=== PATIENT | female | born 1975 | race Caucasian/White ===

== ENCOUNTER 2017-03-01 10:21 | Inpatient (IN) | payer OTHER ==
[~2017-03-01] VITALS: Ht 161.3 cm; Wt 74.8 kg
[2017-03-01] MEDS ORDERED: LOPERAMIDE HCL 2 MG CAPSULE PO PRN ×2 (19:15)
[2017-03-01] MEDS ORDERED: MAG HYDROX/AL HYDROX/SIMETH 30 ML LIQUID UDC PO PRN (19:15)
[2017-03-01] MEDS ORDERED: LORAZEPAM 2 MG/1 ML VIAL IM PRN (19:15)
[2017-03-01] MEDS ORDERED: MIRALAX 17 GM POWD.PACK PO PRN (19:15)
[2017-03-01] MEDS ORDERED: THIAMINE HCL 200 MG/2 ML VIAL IM ONE (19:15)
[2017-03-01] MEDS ORDERED: ONDANSETRON 4 MG/2 ML VIAL IM PRN (19:15)
[2017-03-01] MEDS ORDERED: CLONIDINE HCL 0.1 MG TABLET PO PRN (19:15)
[2017-03-01] MEDS ORDERED: ACETAMINOPHEN 325 MG TABLET PO PRN (19:15)
[2017-03-01] MEDS ORDERED: MAGNESIUM HYDROXIDE 30 ML LIQUID UDC PO PRN (19:15)
[2017-03-01] MEDS ORDERED: IBUPROFEN 400 MG TABLET PO PRN (19:15)
[2017-03-01] MEDS ORDERED: LORAZEPAM 1 MG TABLET PO PRN ×2 (19:15)
[2017-03-01] MEDS ORDERED: ONDANSETRON ODT 4 MG TAB.RAPDIS SL PRN (19:15)
--- NOTE | 2017-03-01 19:45 | NUR ---
PRE ADMISSION NOTE Pt is a 41 y/o female, seen at intake, AAOx4, no SOB with mild anxiety noted at this time. Discussed with patient the admission policies of the unit. Patient is coherent and able to respond to questions appropriately. Pt is ambulatory with steady gait. Vital signs taken and as follows: BP: 151/75, P: 82, R: 18, O2: 100%, T: 95.8, PA: 0. Pt verbalized understanding of instructions and teachings regarding disposal of narcotic and other controlled home medications, unit protocols such as taking of vital signs Q4H and handling and disposal of contraband. Will continue with admission upon pts arrival on the unit.
--- NOTE | 2017-03-01 19:54 | NUR ---
ADMISSION NOTE Pt is a 41 y/o female admitted on 03/01/17 for ETOH dependence, arrived on the unit at 1954. Pt has NKA, denies history of seizures. Pt was able to provide UDS. Upon admission CIWA 5, BP: 151/75, P: 82, R: 18, O2: 100%, T: 95.8, PA: 0. Weight 165, height 53.5. Pt reports she does not have a PCP, smokes 1-1.5 packs daily, denies being hospitalized within past 30 days. Pt is able to understand and respond to all questions pertaining to her hospitalization. Substance Abuse History is as follows: 1. Beer "6-18 packs" daily, last intake of 18 pack on 02/25/17, at this rate for 1 year. 2. Vodka 500 ml once or twice monthly, last intake of 500 ml on 02/12/17, at this rate for 2 years. 3. Marijuana "5-6 one hitters" daily, last intake of "5-6 one hitters" on 02/28/17, at this rate for 2 years. Pts longest sober period for 8 years between [id number]. Treatment history: Pt has only been to one outpatient service, [facility], for 3 months. First time in detox today. Pt reports her mother is an alcoholic. PMH: Anxiety, migraines, rib fracture (2005), and x 3. Pt denies any hx of seizures. Pt denies taking any medications at home. Upon assessment, pt is AAOx4, pt is not currently intoxicated (last intake of ETOH on 02/25/17), presents with mild anxiety, mild sweats and tremors. Respirations 18, even and unlabored. Denies SOB, chest pain, N/V/D. Bowel sounds active x 4, abdomen soft. PERRLA. Skin intact, no open wounds noted. Pt denies SI/HI. Educational information provided and left at bedside. Pt oriented to room and encouraged to notify staff with any concerns. Safety measures in place. Call light within reach, side rails up x 2 with pads, bed locked and in low position. Will continue to monitor.
[2017-03-01 20:00] VITALS: BP 151/75
[2017-03-01 20:21] LABS: *AMPHETAMINE, URINE NEGATIVE (NEGATIVE); *BARBITURATE, URINE NEGATIVE (NEGATIVE); *CANNABINOID, URINE POSITIVE (NEGATIVE); *COCCAINE, URINE NEGATIVE (NEGATIVE); *OPIATE, URINE NEGATIVE (NEGATIVE); *PHENCYCLIDINE SCREEN,URINE NEGATIVE (NEGATIVE)
[2017-03-01 20:22] LABS: *URINE HCG, QUAL NEGATIVE (NEGATIVE)
[2017-03-01 20:49] LABS: BASOPHILS # (AUTO) 0.1 K/uL (0.0-8.0); BASOPHILS % (AUTO) 0.9 % (0.0-2.0); EOSINOPHILS # (AUTO) 0.3 K/uL (0.0-0.7); EOSINOPHILS % (AUTO) 2.7 % (0.0-7.0); HEMATOCRIT 44.3 % (37-47); HEMOGLOBIN 14.7 G/DL (12.0-16.0); LYMPHOCYTES # (AUTO) 3.2 K/UL (0.8-4.8); LYMPHOCYTES % (AUTO) 27.2 % (20.5-51.5); MEAN CORPUSCULAR HEMOGLOBIN 32.5 UUG (27.0-31.0); MEAN CORPUSCULAR HGB CONC 33 g/dL (32.0-37.0); MEAN CORPUSCULAR VOLUME 98.2 FL (81.0-99.0); MONOCYTES # (AUTO) 0.6 K/UL (0.1-1.30); MONOCYTES % (AUTO) 5.5 % (0.0-11.0); NEUTROPHILS # (AUTO) 7.4 K/UL (1.8-8.9); NEUTROPHILS % (AUTO) 63.7 % (38.5-71.5); PLATELET COUNT (AUTO) 268 K/UL (150-450); RED BLOOD CELL COUNT(AUTO) 4.51 MIL/UL (4.2-5.4); WHITE BLOOD COUNT (AUTO) 11.6 K/UL (4.0-11.2)
[2017-03-01 20:58] LABS: ETHANOL < 3 MG/DL (0-0)
[2017-03-01] MEDS ORDERED: THIAMINE HCL 200 MG/2 ML VIAL ONE (21:00)
[2017-03-01] MEDS ORDERED: LORAZEPAM 1 MG TABLET ONE (21:01)
[2017-03-01 21:05] LABS: ALANINE AMINOTRANSFERASE 49 U/L (14-59); ALKALINE PHOSPHATASE 71 U/L (50-136); AMYLASE 62 U/L (25-115); ASPARTATE AMINOTRANSFERASE 34 U/L (15-37); BILIRUBIN,TOTAL 0.2 mg/dL (0.2-1.0); CARBON DIOXIDE 22 mmol/L (21-32); CHLORIDE 109 mmol/L (98-107); CREATININE 1.1 mg/dL (0.6-1.3); GLUCOSE 84 mg/dL (74-106); MAGNESIUM 2.1 mg/dL (1.8-2.4); POTASSIUM 3.9 mmol/L (3.5-5.1); UREA NITROGEN, BLOOD 13 mg/dL (7-18)
--- NOTE | 2017-03-01 21:11 | NUR ---
ATIVAN 2 MG X 1 AND VITAMIN B1 INJ X 1 ADMINISTRATION Pt presents with anxiety, tremors, and mild sweats. CIWA 5. Respirations 18, even and unlabored. Safety measures in place. Call light within reach. Will continue to monitor.
[2017-03-01 21:25] LABS: NEUTROPHILS % (MANUAL) 65 % (42-75)
[2017-03-01 21:26] LABS: EOSINOPHILS % (MANUAL) 1 % (0-8); LYMPHOCYTES % (MANUAL) 26 % (20-40); MONOCYTES % (MANUAL) 8 % (2-10)
[2017-03-01] MEDS ORDERED: LORAZEPAM 1 MG TABLET PO ONE (22:00)
--- NOTE | 2017-03-01 22:11 | NUR ---
ATIVAN 2 MG X 1 REASSESSMENT CIWA lowered from 5 to 2. Pt appears less anxious and tremors decreased. Safety measures in place. Call light within reach. Will continue to monitor.
[2017-03-01] MEDS ORDERED: CLONIDINE HCL 0.1 MG TABLET ONE (22:18)
[2017-03-01] MEDS ORDERED: diphenhydrAMINE 50 MG CAPSULE ONE (22:19)
[2017-03-01] MEDS: diphenhydrAMINE 50 MG CAPSULE PO PRN (22:29)
--- NOTE | 2017-03-01 22:29 | NUR ---
PRN CLONIDINE AND BENADRYL ADMINISTRATION BP 151/75, orders to administer Clonidine for BP > 140/90. Pt requests sleep aid d/t reported insomnia. Safety measures in place. Call light within reach. Will continue to monitor.
--- NOTE | 2017-03-01 23:29 | NUR ---
PRN CLONIDINE AND BENADRYL REASSESSMENT Pt is laying in bed with eyes closed. BP 100/66. Respirations 20, even and unlabored. Safety measures in place. Call light within reach. Will continue to monitor.
[2017-03-01] MEDS ORDERED: hydrALAZINE HCL 50 MG TABLET PO PRN (23:45)
[2017-03-02] VITALS: BP 100/66
--- NOTE | 2017-03-02 | NUR ---
CIWA DEFERRED Pt is laying in bed with eyes closed, to be assessed when pt is awake per orders. Respirations 20, even and unlabored. Safety measures in place. Call light within reach. Will continue to monitor.
[2017-03-02 04:00] VITALS: BP 112/58
--- NOTE | 2017-03-02 04:00 | NUR ---
CIWA DEFERRED Pt laying in bed with eyes closed, to be assessed when pt is awake per orders. Respirations 18, even and unlabored. Safety measures in place. Call light within reach. Will continue to monitor.
--- NOTE | 2017-03-02 07:33 | NUR ---
END OF SHIFT Pt is a 41 y/o female admitted on 03/01/17 for ETOH dependence. Pt was dependent on 6-18 cans of beer daily, occasional vodka intake, and daily MJ use. Last dose of ETOH was 02/25/14. Pt is full code, NKA, regular diet, and fall/seizure precautions. No reported seizure hx. Pt reports PMH of anxiety and migraines. No taper ordered at this time. Upon assessment, pt presented with anxiety, mild sweats, and mild tremors. Vitamin B1 injection, x1 Ativan 2 mg, PRN Clonidine and Benadryl administered effective in S/S of withdrawal AEB CIWA lowered from 5 to 2 during shift. Pt slept 7 hours. Intake 500 ml, voids x 1, stool x 0. Safety measures in place. Call light within reach. Pts needs have been met. Endorsed to day shift nurse.
--- NOTE | 2017-03-02 07:45 | NUR ---
START OF SHIFT Rcvd endorsement from ongoing nurse, client is in bed, she is a/o x 4, she presents with depressed mood, flat affect, and flushed face. She reports abdominal cramps, restless legs, decreased appetite and anxiety. Client denies any N/V/D. She denies any SI/HI. Encouraged client to attend group therapy for skills to maintain sober. Encouraged client to increase PO fluid as tolerated to facilitate detox. Client is a 60 y/o female, admitted to [facility] for withdrawal from alcohol. Ativan 1mg PO q2h PRN CIWA 8-14, Ativan 2 mg PO q2h PRN CIWA 15+ and notify MD. Last CIWA 2 @ 2200. One time dose Ativan 2mg for CIWA 10, noted effective CIWA 2. PRN Benadryl 50mg for PO inability to sleep, she slept 7 hrs. She denies any hx of of withdrawal-induced seizures, she is on seizure precautions. She reports NKA, she is full code, Regular diet. Side rails x 2 up/padded. Call light within reach.
[2017-03-02 08:23] VITALS: BP 118/80
[2017-03-02] MEDS: THIAMINE HCL 100 MG TABLET PO SCH (08:43)
[2017-03-02] MEDS: MULTIVITAMINS,THERAPEUTIC TABLET PO SCH (08:43)
[2017-03-02] MEDS: FOLIC ACID 1 MG TABLET PO SCH (08:43)
[2017-03-02] MEDS ORDERED: TUBERCULIN,PURIF.PROT.DERIV. 5 TU/0.1 ML TEST ID ONE (09:00)
[2017-03-02 12:00] VITALS: BP 136/85
[2017-03-02 16:55] VITALS: BP 137/86
--- NOTE | 2017-03-02 18:52 | NUR ---
END OF SHIFT Endorsed to incoming nurse. Client is a 41 y/o female, admitted to [facility] for withdrawal from alcohol. Ativan 1mg PO q2h PRN CIWA 8-14, Ativan 2 mg PO q2h PRN CIWA 15+ and notify . Last CIWA 4 @ 1600. Client is a/ox4,she needs encouragement to attend group therapy. Adequate PO fluid intake 1806mL, void x 4. She denies any hx of of withdrawal-induced seizures, she is on seizure precautions. She reports NKA, she is full code, Regular diet. Side rails x 2 up/padded. Call light within reach.
--- NOTE | 2017-03-02 19:30 | NUR ---
START OF SHIFT Pt is a 41 y/o female, admitted for withdrawal from alcohol.Pt is not on any taper medications,has PRN orders only.Last CIWA 4 @ 1600. Pt is A/0 X 4.NKA,FULL CODE STATUS,on regular diet.PO fluid intake encouraged as tolerated.She denies any hx of of withdrawal-induced seizures, she is on seizure precautions.Received in stable condition,no s/s of acute distress noted. All safety measures in place,bed is locked in the lowest position with side rails up x 2 . Call light within reach.Will continue to monitor.
[2017-03-02 20:00] VITALS: BP 147/93
[2017-03-02] MEDS: diphenhydrAMINE 50 MG CAPSULE PO PRN (21:22)
--- NOTE | 2017-03-02 21:25 | NUR ---
PRN BENADRYL GIVEN FOR INSOMNIA PER PT REQUEST.WILL MONITOR.
--- NOTE | 2017-03-02 22:25 | NUR ---
PRN F/U PRN EFFECTIVE.PT IS RESTING IN BED WITH EYES CLOSED.NO S/S OF DISTRESS NOTED.
--- NOTE | 2017-03-03 | NUR ---
CIWA DEFERRED/V/S REFUSED Pt resting in bed with eyes closed.CIWA deferred d/t sleep. Respirations 16, even and unlabored. Safety measures in place. Call light within reach. Will continue to monitor.
[2017-03-03] MEDS ORDERED: HYDROXYZINE PAMOATE 25 MG CAPSULE PO PRN ×2 (01:30→13:45)
--- NOTE | 2017-03-03 01:32 | NUR ---
PRN MED PT IS AWAKE,UNABLE TO GO BACK TO SLEEP,REQUESTING FOR SOMETHING TO HELP HER SLEEP.MD NOTIFIED.PRN VISTARIL GIVEN ORDERED.WILL MONITOR.
[2017-03-03] MEDS ORDERED: HYDROXYZINE PAMOATE 25 MG CAPSULE ONE (01:41)
--- NOTE | 2017-03-03 02:32 | NUR ---
PRN EFFECTIVE.PT IS RESTING IN BED WITH EYES CLOSED.
--- NOTE | 2017-03-03 06:43 | NUR ---
END OF SHIFT Pt is a 41 y/o female, admitted for withdrawal from alcohol.Pt is not on any taper medications,has PRN orders only.Last CIWA =3. Pt is A/O X 4.NKA,FULL CODE STATUS,on regular diet.PO fluid intake encouraged as tolerated.She denies any hx of of withdrawal-induced seizures, she is on seizure precautions.PRN meds Benadryl and Vistaril were given with minimal effect. Pt slept 5 hrs,fluid intake was 1050 mls,voided x 2. All safety measures in place,bed is locked in the lowest position with side rails up x 2 . Call light within reach.Will continue to monitor.
[2017-03-03 08:00] VITALS: BP 113/65
--- NOTE | 2017-03-03 08:00 | NUR ---
START OF SHIFT NOTE Received report from night nurse, 41 year old female admitted for ETOH dependence. Pt currently not on any taper but PRN'S available for s/s of withdrawal. Per endorsement pt received PRN Benadryl/Vistaril effective per night nurse, pt slept for 5 hours, last CIWA was 3. Patient received awake, alert and oriented x4, Educated patient regarding plan of care for the day and medication regimen with good verbal understanding. Safety measures in place. call light with in reach, will continue to monitor.
[2017-03-03] MEDS: MULTIVITAMINS,THERAPEUTIC TABLET PO SCH (08:41)
[2017-03-03] MEDS: FOLIC ACID 1 MG TABLET PO SCH (08:41)
[2017-03-03] MEDS: THIAMINE HCL 100 MG TABLET PO SCH (08:41)
[2017-03-03 11:07] LABS: HEPATITIS B SURFACE AG Negative (Negative)
[2017-03-03 12:00] VITALS: BP 124/83
[2017-03-03] MEDS ORDERED: METHYL SALICYLATE/MENTHOL CREAM 28 GM TUBE TOP PRN (13:45)
[2017-03-03] MEDS: ASPIRIN/ACETAMINOPHEN/CAFFEINE TABLET PO PRN (14:05)
--- NOTE | 2017-03-03 14:05 | NUR ---
PRN EXCEDRIN Pt c/o 02/25 sinus type headache. Pt states she usually gets these types of headaches, PRN Excedrin administered as ordered. Primary nurse to reassess.
--- NOTE | 2017-03-03 14:26 | NUR ---
Therapist prompted client to attend her second group. Client agreed to come to group.
[2017-03-03] MEDS: DOCUSATE SODIUM 250 MG CAPSULE PO SCH (14:57)
--- NOTE | 2017-03-03 15:05 | NUR ---
EXCEDRIN REASSESSMENT Per pt Excedrin was effective headache subside to 2/10.
[2017-03-03 16:00] VITALS: BP_SYST 138; BP_SYST 142; BP_DIAS 88; BP_DIAS 92
--- NOTE | 2017-03-03 19:12 | NUR ---
END OF SHIFT NOTE Patient is alert oriented x4. 41 year old female admitted for ETOH dependence. Pt currently not on any taper but PRN'S available for s/s of withdrawal. Patient received PRN Excedrin for migraine noted to be effective.Vital signs remained WNL. Patient remained compliant with treatment plan and medication regime. Medications were effective in reducing withdrawal symptoms. Last CIWA score noted 4, at 1600. All safety measures in place, Call light within reach. Patient endorsed to night nurse in stable condition.
--- NOTE | 2017-03-03 19:15 | NUR ---
Start of Shift Note: Patient is a 41 y/o female admitted on 03/01/17 for ETOH dependence. Patient reported with PMHx of Anxiety, Migraines, x3 and rib fracture in 2005. No seizure history noted. Patient is on a regular diet with no known food and drug allergies. Full Code status. Patient has no taper. PRN medication available for s/s of withdrawal. Last CIWa is 4. Patient was given Excedrin for migraine during day shift. Patient is alert & oriented x4. No shortness of breath noted. Respiration even & unlabored. Abdomen soft & non-distended. No nausea noted. Patient complains of slight and left shoulder pain. Hand tremors felt. Patient denies any hallucinations. Safety precautions are in place. Bed locked in lowest position. Both side rails up. Call light within pts reach. Will continue to monitor patient.
[2017-03-03 20:00] VITALS: BP 121/96
[2017-03-03] MEDS: TRAZODONE 50 MG TABLET PO PRN (20:56)
--- NOTE | 2017-03-03 20:56 | NUR ---
PRN Trazodone & Benggay Patient was complaining of left shoulder pain. PRN Benggay administered as ordered. Pt also requesting for medication to help her sleep. PRN Trazodone also given. Will continue to monitor for effetiveness of medication.
--- NOTE | 2017-03-03 21:56 | NUR ---
PRN Reassessment Patient reported that medication helped relieve the left shoulder pain. Patient still awake at tis time with no s/s of distress. Safety measures in place. Will continue to monitor patient.
[2017-03-04] VITALS: BP 115/66
[2017-03-04 04:00] VITALS: BP 99/64
--- NOTE | 2017-03-04 07:10 | NUR ---
End of Shift Note: Patient had an uneventful night. Patient has no taper. PRN medication available for s/s of withdrawal. Last COWS 3. Patient received PRN Benggay for her left shoulder pain & Trazodone for sleep, both medications were effective. Patient remains stable and vitals remains WNL. Pt slept for a total of 6 hours. Pt consumed 1250ml of fluids. Pt voided 2x with no bowel movement. Encourage pt to increase fluid intake. All needs attended & met. Safety measures in place. Will endorse pt to day shift nurse.
--- NOTE | 2017-03-04 07:45 | NUR ---
START OF SHIFT NOTE Received report from night nurse, 41 year old female admitted for ETOH dependence. Pt currently not on any taper but PRN'S available for s/s of withdrawal. Per endorsement pt received PRN Trazodone/Bengay effective per night nurse, pt slept for 6 hours, last CIWA was 3. Patient received awake, alert and oriented x4, Educated patient regarding plan of care for the day and medication regimen with good verbal understanding. Safety measures in place. call light with in reach, will continue to monitor.
[2017-03-04 08:00] VITALS: BP 138/76
[2017-03-04] MEDS: DOCUSATE SODIUM 250 MG CAPSULE PO SCH (08:10)
[2017-03-04] MEDS: MULTIVITAMINS,THERAPEUTIC TABLET PO SCH (08:10)
[2017-03-04] MEDS: THIAMINE HCL 100 MG TABLET PO SCH (08:10)
[2017-03-04] MEDS: FOLIC ACID 1 MG TABLET PO SCH (08:10)
[2017-03-04 12:00] VITALS: BP 136/92
[2017-03-04] MEDS: ASPIRIN/ACETAMINOPHEN/CAFFEINE TABLET PO PRN (14:12)
--- NOTE | 2017-03-04 14:12 | NUR ---
PRN EXCEDRIN Pt c/o 5/10 headache, PRN Excedrin administered as ordered. Will cont to monitor and reassess.
[2017-03-04] MEDS ORDERED: TRAZ-144 PO (14:16)
[2017-03-04] MEDS ORDERED: Aspirin/Acetaminophen/Caffeine PO (14:16)
[2017-03-04] MEDS ORDERED: HYDR-3895 PO (14:16)
[2017-03-04] MEDS ORDERED: CLON0.1T14 PO (14:16)
[2017-03-04] MEDS ORDERED: IBUP-1955 PO (14:21)
[2017-03-04] MEDS ORDERED: METH28OI2 TOP (14:21)
--- NOTE | 2017-03-04 15:12 | NUR ---
EXCEDRIN REASSESSMENT Per pt Excedrin was effective headache subside to 05/28.
[2017-03-04 16:00] VITALS: BP 135/93
--- NOTE | 2017-03-04 18:57 | NUR ---
END OF SHIFT NOTE Patient is alert oriented x4. 41 year old female admitted for ETOH dependence. Pt was not on any taper but PRN'S available for s/s of withdrawal. Patient received PRN Excedrin for migraine noted to be effective.Vital signs remained WNL. Patient remained compliant with treatment plan and medication regime. Last CIWA score noted 2, at 1600. Patient scheduled for discharge in AM. All safety measures in place, Call light within reach. Patient endorsed to night nurse in stable condition.
--- NOTE | 2017-03-04 19:30 | NUR ---
Start of shift note Patient is a 41 year old female admitted to [facility] on 03-01-17 for alcohol detox. Patient was monitored for withdrawal symptoms with PRN ativan available for active withdrawal. Patient has continued to remain stable. Last CIWA 2 at 1600. PMH includes anxiety and migraines. Mood stable, affect congruent. Patient tolerating diet and fluids, attending unit groups and activities. Safety measures in place, fall and seizure precautions, 2 side rails up for safety, call light within reach.
[2017-03-04 20:00] VITALS: BP 130/90
[2017-03-04] MEDS: TRAZODONE 50 MG TABLET PO PRN (21:02)
--- NOTE | 2017-03-04 21:02 | NUR ---
PRN MEDICATION Patient received Trazodone 50 mg PO at 2101 for insomnia Effect pending. Patient received Milk of Magnesia 30 ML po at 2101 for constipation. Effect pending.
--- NOTE | 2017-03-04 22:10 | NUR ---
reassessment of patient Patient received Trazodone 50 mg PO at 2101 for insomnia one hour later patient reports she is feeling sleepy. Effect noted as fair. Patient received Milk of Magnesia 30 ML po at 210 for constipation. patient without current BM. Effect pending.
--- NOTE | 2017-03-05 | NUR ---
VS refused/CIWA deferred Patient refused 0000 vital signs CIWA deferred for sleep. Patient resting comfortably in bed, eyes closed, breathing even and unlabored R 16.
--- NOTE | 2017-03-05 04:00 | NUR ---
CIWA deferred Vital signs refused Patient refused VS at 0400 requested to sleep. CIWA deferred for sleep. Patient resting comfortably in bed. Breathing even and unlabored R 16.
--- NOTE | 2017-03-05 06:48 | NUR ---
End of shift Patient is a 41 year old female admitted to [facility] on 03-01-17 for alcohol detox. Patient was monitored for withdrawal symptoms with PRN ativan available for active withdrawal. Patient has continued to remain stable. PMH includes anxiety and migraines. Patient tolerating diet and fluids, attending unit groups and activities. Patient received PRN Trazodone 50 mg for sleep with good effect. She also received PRN MOM 30 ml for constipation with effect of 1 large BM. Patient tolerating diet and fluids, denies pain. Safety measures in place, as well as fall and seizure precautions, 2 side rails up for safety, call light within reach. Intake 960 ml output 3 voids, 1 BM. Slept a total of 8 hours. Report given to AM nurse
[2017-03-05 08:00] VITALS: BP 106/79
--- NOTE | 2017-03-05 08:00 | NUR ---
START OF SHIFT NOTE 41 year old female admitted for ETOH substance abuse and detox. Pt to be discharged today to rehabilitation center. History of anxiety, migraines. On seizure and fall precautions. Full code. Regular diet. NKA. Received report from night RN. Last CIWA 3 at 8 pm. PRN medications of trazadone, MOM. Pt had BM x 1. On 0800 rounds, pt alert and oriented. CIWA 1. Bed in low position, side rails up x 2 and padded. Call light within reach. Will continue to monitor.
[2017-03-05] MEDS: MULTIVITAMINS,THERAPEUTIC TABLET PO SCH (08:35)
[2017-03-05] MEDS: FOLIC ACID 1 MG TABLET PO SCH (08:35)
[2017-03-05] MEDS: THIAMINE HCL 100 MG TABLET PO SCH (08:35)
[2017-03-05] MEDS: DOCUSATE SODIUM 250 MG CAPSULE PO SCH (08:45)
--- NOTE | 2017-03-05 09:32 | NUR ---
DISCHARGE NOTE Pt in stable condition, vitals BP 106/79, pulse 86, RR 16, pulse ox 100 percent, temp 98.0, pain 0/10. Skin intact, denies any suicidal or homicidal ideations, all discharge paper work signed and dated. Pt was discharged form [facility] on 03/05/17 at 0932. Pt left the building with all of her belongings. No home medications on admission. No prescriptions written by MD upon discharge. MD notified of discharge.
== END 2017-03-05 09:32 | disposition other institution (70) | DRG 895 ==
LOC: SRC 19:02
PROVIDERS: ADMIT Internal Medicine; ATTEND Internal Medicine
PROC: HZ2ZZZZ Detoxification Services for Substance Abuse Treatment (ICD-10-PCS; principal; 2017-03-01)
PROC: HZ41ZZZ Group Counseling for Substance Abuse Treatment, Behavioral (ICD-10-PCS; 2017-03-02)
PROC: HZ31ZZZ Individual Counseling for Substance Abuse Treatment, Behavioral (ICD-10-PCS; 2017-03-04)
DX: F10.230 Alcohol dependence with withdrawal, uncomplicated (principal); I15.9 Secondary hypertension, unspecified; D72.823 Leukemoid reaction; F12.90 Cannabis use, unspecified, uncomplicated; F17.210 Nicotine dependence, cigarettes, uncomplicated; Y90.0 Blood alcohol level of less than 20 mg/100 ml; G43.909 Migraine, unspecified, not intractable, without status migrainosus; F41.9 Anxiety disorder, unspecified; Z81.1 Family history of alcohol abuse and dependence; Z80.9 Family history of malignant neoplasm, unspecified; G47.00 Insomnia, unspecified
CPT/HCPCS: 36415; 70030-TC; 80307; 80349; 83735; 84703; 85025; 86580; 86592; 86705; 86803; 87340; 87806; A4663; G0480; J3411; Q0163